=== PATIENT | male | born 1935 | race Two or more races ===

== ENCOUNTER 2021-08-14 06:36 | Inpatient (IN) | payer MEDICARE, MEDICAID ==
[~2021-08-14] VITALS: Ht 170.2 cm; Wt 93.7 kg
[2021-08-14] MEDS ORDERED: SODIUM CHLORIDE 0.9% 1,000 ML IV ONE (08:00)
[2021-08-14 09:12] LABS: Basophils # (auto) 0.1 10 ^3/uL (0-0.2); Basophils % (auto) 0.7 % (0.0-2.0); Eosinophils # (auto) 0.4 10 ^3/uL (0-0.8); Eosinophils % (auto) 4.4 % (0.0-7.0); Hematocrit 40.4 % (41.0-53.0); Hemoglobin 13.7 g/dL (13.5-17.5); Lymphocytes % (auto) 11.3 % (10.0-50.0); Mean Corpuscular Hemoglobin 31.3 pg (28.0-32.0); Mean Corpuscular Hgb Conc. 33.9 g/dL (32.0-36.0); Mean Corpuscular Volume 92.5 fL (80.0-100.0); Monocytes # (auto) 0.7 10 ^3/uL (0-1.3); Monocytes % (auto) 8.3 % (0.0-12.0); Neutrophils # (auto) 6.4 10 ^3/uL (1.6-8.6); Neutrophils % (auto) 75.3 % (37.0-80.0); Red Blood Cells 4.36 10^6/uL (4.5-5.90); Red Cell Distribution Width 16.1 % (11.8-14.3); White Blood Cell 8.5 10^3/uL (4.4-10.8)
[2021-08-14 09:21] LABS: Urine Bacteria NONE SEEN /hpf (None Seen); Urine Blood Negative /uL (Negative); Urine Specific Gravity 1.008 (1.001-1.035); Urine Sperm PRESENT /hpf (None Seen); Urine WBC 1 /hpf (0 - 3)
[2021-08-14 09:29] LABS: Albumin 3.3 g/dL (3.4-5.0); Calcium 9.1 mg/dL (8.5-10.1); Magnesium 2.2 mg/dL (1.6-2.6); Potassium 4.2 mmol/L (3.5-5.1)
[2021-08-14 09:33] LABS: BUN/Creatinine Ratio 16.8; Bilirubin, Total 0.6 mg/dL (0.2-1.0); Total Protein 8.4 g/dL (6.4-8.2)
[2021-08-14] MEDS ORDERED: NITROGLYCERIN 0.4 MG SL TAB SL PRN (11:00)
[2021-08-14] MEDS ORDERED: cefTRIAXone 1GM/50ML D5W 50 ML IV ONE (11:00)
[2021-08-14] MEDS ORDERED: MORPHINE SULFATE INJ 2 MG/ml SYRG IV PRN ×2 (11:00→11:30)
[2021-08-14] MEDS ORDERED: FUROSEMIDE 40 MG/4 ML VIAL IV ONE (11:00)
[2021-08-14] MEDS ORDERED: HYDROcodone-ACET 5/325MG TAB PO PRN (11:30)
[2021-08-14] MEDS ORDERED: ONDANSETRON HCL 4 MG/2 ML VIAL IV PRN (11:30)
[2021-08-14] MEDS ORDERED: BENAZEPRIL HCL 10 MG TAB PO ONE (11:30)
[2021-08-14] MEDS ORDERED: hydrALAZINE HCL 20 MG/ML VL IV PRN (11:30)
[2021-08-14] MEDS ORDERED: METOPROLOL SUCCINATE XL 50 MG TAB PO ONE (11:30)
[2021-08-14] MEDS ORDERED: ACETAMINOPHEN 325 MG TAB PO PRN (11:30)
[2021-08-14] MEDS ORDERED: LORazepam 0.5 MG TAB PO PRN (11:30)
[2021-08-14] MEDS ORDERED: DOCUSATE SOD 100 MG CAP PO PRN (11:30)
[2021-08-14] MEDS: SODIUM CHLORIDE 0.9% 1,000 ML IV SCH (11:46)
[2021-08-14 12:35] LABS: INR 1.13 (0.9-1.15); Partial Thromboplastin Time 29.7 sec (23.6-33.0)
[2021-08-14] MEDS: CLINDAMYCIN 600MG IV 50 ML IV SCH (14:50)
[2021-08-14 16:30] LABS: Magnesium 2.2 mg/dL (1.6-2.6)
[2021-08-14] MEDS: FUROSEMIDE 20 MG/2 ML VIAL IV SCH (19:08)
[2021-08-14 20:00] VITALS: BP 104/58
[2021-08-14] MEDS ORDERED: LISIPOW XX (20:53)
[2021-08-14] MEDS ORDERED: MET50T PO (20:53)
[2021-08-14] MEDS ORDERED: LISI2.5T47 PO (20:53)
[2021-08-14] MEDS: POTASSIUM CHL 20 Meq TABLET PO SCH (20:59)
[2021-08-14] MEDS: ATORVASTATIN 20 MG TAB PO SCH (21:00)
[2021-08-14 21:47] VITALS: BP 135/78
[2021-08-15 04:57] VITALS: BP 121/63
[2021-08-15 07:26] LABS: Basophils # (auto) 0 10 ^3/uL (0-0.2); Basophils % (auto) 0.5 % (0.0-2.0); Eosinophils # (auto) 0.4 10 ^3/uL (0-0.8); Eosinophils % (auto) 4.3 % (0.0-7.0); Hematocrit 40.2 % (41.0-53.0); Hemoglobin 13.8 g/dL (13.5-17.5); Lymphocytes # (auto) 0.9 10 ^3/uL (0.4-5.4); Lymphocytes % (auto) 9.3 % (10.0-50.0); Mean Corpuscular Hemoglobin 31.6 pg (28.0-32.0); Mean Corpuscular Hgb Conc. 34.3 g/dL (32.0-36.0); Mean Corpuscular Volume 92.3 fL (80.0-100.0); Monocytes # (auto) 0.8 10 ^3/uL (0-1.3); Monocytes % (auto) 9.2 % (0.0-12.0); Neutrophils # (auto) 7.1 10 ^3/uL (1.6-8.6); Neutrophils % (auto) 76.7 % (37.0-80.0); Nucleated Red Blood Cells % 0.1 %; Red Blood Cells 4.36 10^6/uL (4.5-5.90); Red Cell Distribution Width 15.8 % (11.8-14.3); White Blood Cell 9.2 10^3/uL (4.4-10.8)
[2021-08-15 07:40] LABS: INR 1.11 (0.9-1.15); Partial Thromboplastin Time 28.2 sec (23.6-33.0)
[2021-08-15] MEDS: CLINDAMYCIN 600MG IV 50 ML IV SCH ×4 (07:45→21:58)
[2021-08-15] MEDS: SODIUM CHLORIDE 0.9% 1,000 ML IV SCH ×2 (07:46→20:50)
[2021-08-15] MEDS: FUROSEMIDE 20 MG/2 ML VIAL IV SCH ×2 (07:46→18:00)
[2021-08-15 07:48] LABS: Potassium 4.4 mmol/L (3.5-5.1)
[2021-08-15 07:57] LABS: Thyroid Stimulating Hormone 1.34 uIU/mL (0.358-3.74)
[2021-08-15 08:00] VITALS: BP 104/58
[2021-08-15 08:03] LABS: Albumin 2.9 g/dL (3.4-5.0); BUN/Creatinine Ratio 17.8; Bilirubin, Total 0.6 mg/dL (0.2-1.0); CRP High Sensitivity 1.35 mg/dL (< 0.3); Calcium 8.9 mg/dL (8.5-10.1); Total Protein 7.7 g/dL (6.4-8.2); Uric Acid 7.1 mg/dL (3.5-7.2)
[2021-08-15 09:00] VITALS: BP 104/69
[2021-08-15] MEDS: cefTRIAXone 1GM/50ML D5W 50 ML IV SCH (09:02)
[2021-08-15] MEDS: ASPirin 81 mg TAB PO SCH (09:48)
[2021-08-15] MEDS: POTASSIUM CHL 20 Meq TABLET PO SCH ×2 (09:49→21:58)
[2021-08-15] MEDS: ENOXAPARIN SOD 40 MG/0.4 ML SYRINGE SC SCH (09:54)
[2021-08-15] MEDS: METOPROLOL SUCCINATE XL 50 MG TAB PO SCH (10:00)
[2021-08-15] MEDS: BENAZEPRIL HCL 10 MG TAB PO SCH (10:00)
[2021-08-15] MEDS ORDERED: FAMOTIDINE (10MG/ML) 2ML VL IV SCH (10:00)
[2021-08-15 13:00] VITALS: BP 114/66
[2021-08-15 17:00] VITALS: BP 107/64
[2021-08-15] MEDS: ATORVASTATIN 20 MG TAB PO SCH (21:58)
[2021-08-15 22:00] VITALS: BP 113/65
[2021-08-16] MEDS: FUROSEMIDE 20 MG/2 ML VIAL IV SCH ×2 (06:00→17:21)
[2021-08-16] MEDS: CLINDAMYCIN 600MG IV 50 ML IV SCH (06:37)
[2021-08-16] MEDS: cefTRIAXone 1GM/50ML D5W 50 ML IV SCH (08:57)
[2021-08-16] MEDS: POTASSIUM CHL 20 Meq TABLET PO SCH ×2 (08:58→22:10)
[2021-08-16] MEDS: ASPirin 81 mg TAB PO SCH (08:58)
[2021-08-16] MEDS: BENAZEPRIL HCL 10 MG TAB PO SCH (08:59)
[2021-08-16] MEDS: METOPROLOL SUCCINATE XL 50 MG TAB PO SCH (09:00)
[2021-08-16] MEDS: ENOXAPARIN SOD 40 MG/0.4 ML SYRINGE SC SCH (09:03)
[2021-08-16] MEDS: SODIUM CHLORIDE 0.9% 1,000 ML IV SCH (13:30)
[2021-08-16] MEDS ORDERED: AZITHROMYCIN 250 MG TAB PO ONE (15:45)
[2021-08-16 17:00] VITALS: BP 91/57
[2021-08-16 22:00] VITALS: BP 107/69
[2021-08-16] MEDS: ATORVASTATIN 20 MG TAB PO SCH (22:10)
[2021-08-17 04:00] VITALS: BP 120/72
[2021-08-17] MEDS: SODIUM CHLORIDE 0.9% 1,000 ML IV SCH (06:10)
[2021-08-17] MEDS: FUROSEMIDE 20 MG/2 ML VIAL IV SCH (06:22)
[2021-08-17 09:00] VITALS: BP 93/58
[2021-08-17] MEDS: cefTRIAXone 1GM/50ML D5W 50 ML IV SCH (09:14)
[2021-08-17] MEDS: ASPirin 81 mg TAB PO SCH (09:15)
[2021-08-17] MEDS: ENOXAPARIN SOD 40 MG/0.4 ML SYRINGE SC SCH (09:15)
[2021-08-17] MEDS: AZITHROMYCIN 250 MG TAB PO SCH (09:15)
[2021-08-17] MEDS: METOPROLOL SUCCINATE XL 50 MG TAB PO SCH (09:16)
[2021-08-17] MEDS: BENAZEPRIL HCL 10 MG TAB PO SCH (09:16)
[2021-08-17] MEDS: POTASSIUM CHL 20 Meq TABLET PO SCH ×2 (09:16→21:53)
[2021-08-17 13:00] VITALS: BP 114/58
[2021-08-17 17:00] VITALS: BP 112/62
[2021-08-17 21:51] VITALS: BP 102/60
[2021-08-17] MEDS: ATORVASTATIN 20 MG TAB PO SCH (21:54)
[2021-08-18] MEDS: SODIUM CHLORIDE 0.9% 1,000 ML IV SCH ×3 (04:51→21:24)
[2021-08-18 04:55] VITALS: BP 105/60
[2021-08-18 09:00] VITALS: BP 116/80
[2021-08-18] MEDS: cefTRIAXone 1GM/50ML D5W 50 ML IV SCH (09:43)
[2021-08-18] MEDS: ASPirin 81 mg TAB PO SCH (09:44)
[2021-08-18] MEDS: BENAZEPRIL HCL 10 MG TAB PO SCH (09:44)
[2021-08-18] MEDS: POTASSIUM CHL 20 Meq TABLET PO SCH ×2 (09:44→21:09)
[2021-08-18] MEDS: AZITHROMYCIN 250 MG TAB PO SCH (09:45)
[2021-08-18] MEDS: METOPROLOL SUCCINATE XL 50 MG TAB PO SCH (09:45)
[2021-08-18] MEDS: ENOXAPARIN SOD 40 MG/0.4 ML SYRINGE SC SCH (09:46)
[2021-08-18 16:14] LABS: Folate (Folic Acid) 16.46 ng/mL (5.38-24)
[2021-08-18 18:58] VITALS: BP 102/61
[2021-08-18] MEDS: ATORVASTATIN 20 MG TAB PO SCH (21:09)
[2021-08-18 21:57] VITALS: BP 102/65
[2021-08-19 05:00] VITALS: BP 110/73
[2021-08-19 09:00] VITALS: BP 98/66
[2021-08-19] MEDS: cefTRIAXone 1GM/50ML D5W 50 ML IV SCH (09:38)
[2021-08-19] MEDS: POTASSIUM CHL 20 Meq TABLET PO SCH (09:38)
[2021-08-19] MEDS: ASPirin 81 mg TAB PO SCH (09:38)
[2021-08-19] MEDS: AZITHROMYCIN 250 MG TAB PO SCH (09:39)
[2021-08-19] MEDS: ENOXAPARIN SOD 40 MG/0.4 ML SYRINGE SC SCH (09:39)
[2021-08-19] MEDS: METOPROLOL SUCCINATE XL 50 MG TAB PO SCH (09:39)
[2021-08-19] MEDS: BENAZEPRIL HCL 10 MG TAB PO SCH (09:39)
[2021-08-19] MEDS ORDERED: ATO40T PO (09:50)
[2021-08-19] MEDS ORDERED: AZIT500T66 PO (09:50)
[2021-08-19] MEDS ORDERED: ASPI-463 PO (09:50)
[2021-08-19 12:25] VITALS: BP 98/66
== END 2021-08-19 12:57 | disposition home or self-care (01) | DRG 177 ==
LOC: ER 06:36 → EDBD 06:36 → TELE 10:54 → TELE-CENTR 20:07
PROVIDERS: ADMIT Hospitalist; ATTEND Family Medicine
DX: J69.0 Pneumonitis due to inhalation of food and vomit (principal); G93.41 Metabolic encephalopathy; I50.23 Acute on chronic systolic (congestive) heart failure; I25.2 Old myocardial infarction; I10 Essential (primary) hypertension; E78.00 Pure hypercholesterolemia, unspecified; Z86.73 Personal history of transient ischemic attack (TIA), and cerebral infarction without residual deficits; Z95.0 Presence of cardiac pacemaker; I34.0 Nonrheumatic mitral (valve) insufficiency; R20.2 Paresthesia of skin; F03.90 Unspecified dementia, unspecified severity, without behavioral disturbance, psychotic disturbance, mood disturbance, and anxiety; I50.9 Heart failure, unspecified; I11.0 Hypertensive heart disease with heart failure
CPT/HCPCS: 36415; 70450; 70545; 70551; 71046; 80053; 80061; 81001; 82550; 82607; 82728; 82746; 83036; 83615; 83690; 83735; 83880; 84100; 84443; 84484; 84550; 85025; 85379; 85610; 85652; 85730; 86141; 87040; 87086; 93005; 93306; 93886; 95819; 96361; 96365; G0378; J0696; J3490

== ENCOUNTER 2021-08-25 07:02 | Inpatient (IN) | payer MEDICARE, MEDICAID ==
[~2021-08-25] VITALS: Ht 182.9 cm; Wt 91.7 kg
[~2021-08-25 07:02] MED LIST: ASPI-463 PO; ATO40T PO; AZIT500T66 PO; LISI2.5T47 PO; MET50T PO
[2021-08-25] MEDS ORDERED: SODIUM CHLORIDE 0.9% 1,000 ML IV ONE (09:45)
[2021-08-25 10:25] LABS: Basophils # (auto) 0 10 ^3/uL (0-0.2); Basophils % (auto) 0.6 % (0.0-2.0); Eosinophils # (auto) 0.2 10 ^3/uL (0-0.8); Eosinophils % (auto) 2.6 % (0.0-7.0); Hemoglobin 12.7 g/dL (13.5-17.5); Lymphocytes # (auto) 0.9 10 ^3/uL (0.4-5.4); Mean Corpuscular Hemoglobin 30.9 pg (28.0-32.0); Mean Corpuscular Hgb Conc. 33.3 g/dL (32.0-36.0); Mean Corpuscular Volume 92.8 fL (80.0-100.0); Monocytes # (auto) 0.9 10 ^3/uL (0-1.3); Monocytes % (auto) 12.5 % (0.0-12.0); Neutrophils # (auto) 5.4 10 ^3/uL (1.6-8.6); Neutrophils % (auto) 72.3 % (37.0-80.0); Nucleated Red Blood Cells % 0.2 %; Red Cell Distribution Width 16.3 % (11.8-14.3); White Blood Cell 7.5 10^3/uL (4.4-10.8)
[2021-08-25 10:43] LABS: Calcium 8.5 mg/dL (8.5-10.1); Magnesium 1.9 mg/dL (1.6-2.6); Potassium 4.1 mmol/L (3.5-5.1)
[2021-08-25 10:46] LABS: BUN/Creatinine Ratio 15.3; Bilirubin, Total 0.7 mg/dL (0.2-1.0); Total Protein 7.5 g/dL (6.4-8.2)
[2021-08-25 11:53] LABS: Urine Bacteria NONE SEEN /hpf (None Seen); Urine Blood 1+ /uL (Negative); Urine Specific Gravity 1.022 (1.001-1.035); Urine WBC 1 /hpf (0 - 3)
[2021-08-25] MEDS ORDERED: IOHEXOL 300 MG/ML 100ML BOTTLE IJ ONE (11:53)
[2021-08-25] MEDS ORDERED: cefTRIAXone 1GM/50ML D5W 50 ML IV ONE (15:15)
[2021-08-25] MEDS ORDERED: SPIRONOLACTONE 25 MG TAB PO ONE (15:15)
[2021-08-25] MEDS ORDERED: FUROSEMIDE 20 MG/2 ML VIAL IV ONE (15:15)
[2021-08-25] MEDS ORDERED: AZITHROMYCIN 500MG/ 250ML 250 ML IV ONE (15:15)
[2021-08-25] MEDS ORDERED: MORPHINE SULFATE INJ 2 MG/ml SYRG IV PRN (15:30)
[2021-08-25 16:05] LABS: Cholesterol 89 mg/dL (< 200); HDL Cholesterol 33 mg/dL (40-59); LDL Cholesterol 56 mg/dL (< 100); Triglycerides 65 mg/dL (< 150)
[2021-08-25] MEDS ORDERED: hydrALAZINE HCL 20 MG/ML VL IV PRN (17:15)
[2021-08-26 04:42] LABS: Basophils # (auto) 0.1 10 ^3/uL (0-0.2); Basophils % (auto) 0.6 % (0.0-2.0); Eosinophils # (auto) 0.3 10 ^3/uL (0-0.8); Eosinophils % (auto) 2.9 % (0.0-7.0); Hematocrit 37.8 % (41.0-53.0); Hemoglobin 12.8 g/dL (13.5-17.5); Lymphocytes # (auto) 1.1 10 ^3/uL (0.4-5.4); Lymphocytes % (auto) 11.7 % (10.0-50.0); Mean Corpuscular Hemoglobin 31.6 pg (28.0-32.0); Monocytes # (auto) 1.1 10 ^3/uL (0-1.3); Monocytes % (auto) 11.9 % (0.0-12.0); Neutrophils # (auto) 6.6 10 ^3/uL (1.6-8.6); Neutrophils % (auto) 72.9 % (37.0-80.0); Nucleated Red Blood Cells % 0.3 %; Red Blood Cells 4.06 10^6/uL (4.5-5.90); Red Cell Distribution Width 16.3 % (11.8-14.3); White Blood Cell 9.1 10^3/uL (4.4-10.8)
[2021-08-26 05:05] LABS: BUN/Creatinine Ratio 14.2; Calcium 8.6 mg/dL (8.5-10.1); Potassium 3.7 mmol/L (3.5-5.1)
[2021-08-26 05:08] LABS: Bilirubin, Total 0.7 mg/dL (0.2-1.0)
[2021-08-26 09:30] VITALS: BP 115/63
[2021-08-26] MEDS: cefTRIAXone 1GM/50ML D5W 50 ML IV SCH (09:40)
[2021-08-26] MEDS: AZITHROMYCIN 500MG/ 250ML 250 ML IV SCH (09:41)
[2021-08-26] MEDS ORDERED: LISINOPRIL 5 MG TAB PO ONE (10:30)
[2021-08-26] MEDS ORDERED: CARVEDILOL 3.125 MG TAB PO ONE (10:30)
[2021-08-26] MEDS ORDERED: guaiFENesin-DM 100/10mg/5ml SYR PO PRN ×2 (11:30)
[2021-08-26] MEDS ORDERED: FUROSEMIDE 20 MG/2 ML VIAL IV ONE (11:30)
[2021-08-26 12:37] LABS: INR 1.27 (0.9-1.15); Partial Thromboplastin Time 29.1 sec (23.6-33.0)
[2021-08-26 12:59] VITALS: BP 126/82
[2021-08-26 17:23] VITALS: BP 100/62
[2021-08-26 22:00] VITALS: BP 101/55
[2021-08-26] MEDS: CARVEDILOL 3.125 MG TAB PO SCH (22:00)
[2021-08-27 05:00] VITALS: BP 132/71
[2021-08-27 09:00] VITALS: BP 105/61
[2021-08-27] MEDS ORDERED: FUROSEMIDE 20 MG TAB PO ONE (09:45)
[2021-08-27] MEDS: FUROSEMIDE 20 MG/2 ML VIAL IV SCH (09:52)
[2021-08-27] MEDS: CARVEDILOL 3.125 MG TAB PO SCH ×2 (09:55→20:59)
[2021-08-27] MEDS: cefTRIAXone 1GM/50ML D5W 50 ML IV SCH (09:56)
[2021-08-27] MEDS: FUROSEMIDE 20 MG TAB PO SCH (09:57)
[2021-08-27] MEDS ORDERED: LISINOPRIL 5 MG TAB PO SCH (10:00)
[2021-08-27] MEDS: AZITHROMYCIN 500MG/ 250ML 250 ML IV SCH (10:30)
[2021-08-27 13:00] VITALS: BP 109/63
[2021-08-27 17:00] VITALS: BP 110/64
[2021-08-27 22:00] VITALS: BP 115/73
[2021-08-28 05:15] VITALS: BP 115/63
[2021-08-28 07:30] VITALS: BP 115/63
[2021-08-28] MEDS: cefTRIAXone 1GM/50ML D5W 50 ML IV SCH (08:48)
[2021-08-28] MEDS: AZITHROMYCIN 500MG/ 250ML 250 ML IV SCH (08:49)
[2021-08-28] MEDS: CARVEDILOL 3.125 MG TAB PO SCH (08:50)
[2021-08-28] MEDS: FUROSEMIDE 20 MG TAB PO SCH (08:52)
[2021-08-28] MEDS: FUROSEMIDE 20 MG/2 ML VIAL IV SCH (08:52)
[2021-08-28 08:55] VITALS: BP 107/64
[2021-08-28 12:52] VITALS: BP 101/61
[2021-08-28 13:30] VITALS: BP 101/61
== END 2021-08-28 14:30 | disposition home or self-care (01) | DRG 177 ==
LOC: ER 07:02 → TELE 15:21 → TELE-CENTR 22:19
PROVIDERS: ADMIT Registered Nurse; ATTEND Internal Medicine Nephrology
PROC: 0W993ZZ Drainage of Right Pleural Cavity, Percutaneous Approach (ICD-10-PCS; principal; 2021-08-26)
DX: J15.6 Pneumonia due to other Gram-negative bacteria (principal); I50.23 Acute on chronic systolic (congestive) heart failure; I13.0 Hypertensive heart and chronic kidney disease with heart failure and stage 1 through stage 4 chronic kidney disease, or unspecified chronic kidney disease; E44.0 Moderate protein-calorie malnutrition; I48.20 Chronic atrial fibrillation, unspecified; J91.8 Pleural effusion in other conditions classified elsewhere; R10.31 Right lower quadrant pain; Z20.822 Contact with and (suspected) exposure to COVID-19; I25.10 Atherosclerotic heart disease of native coronary artery without angina pectoris; J84.10 Pulmonary fibrosis, unspecified; R32 Unspecified urinary incontinence; D63.8 Anemia in other chronic diseases classified elsewhere; N18.2 Chronic kidney disease, stage 2 (mild); E78.5 Hyperlipidemia, unspecified; Z95.0 Presence of cardiac pacemaker; I25.2 Old myocardial infarction; Z79.899 Other long term (current) drug therapy; Z82.49 Family history of ischemic heart disease and other diseases of the circulatory system; Z86.73 Personal history of transient ischemic attack (TIA), and cerebral infarction without residual deficits; Z87.01 Personal history of pneumonia (recurrent); Z68.27 Body mass index [BMI] 27.0-27.9, adult; J15.1 Pneumonia due to Pseudomonas
CPT/HCPCS: 36415; 71046; 71250; 74177; 76604; 76942; 80053; 80061; 81001; 83615; 83690; 83735; 83880; 83986; 85025; 85610; 85730; 87040; 87070; 87077; 87086; 87186; 87205; 89051; 93005; 93306; 96361; 96365; 96375; G0378; J0696